=== PATIENT | female | born 1965 | race Asian ===

== ENCOUNTER → 2023-04-12 11:41 | Outpatient (BNVA) | payer BC, SELFPAY | PROVIDERS: PCP Family Medicine; Visit Provider Internal Medicine Rheumatology | DX: Z79.899 Other long term (current) drug therapy (principal); G57.03 Lesion of sciatic nerve, bilateral lower limbs; M35.00 Sjogren syndrome, unspecified; G57.60 Lesion of plantar nerve, unspecified lower limb; M19.90 Unspecified osteoarthritis, unspecified site; Z11.1 Encounter for screening for respiratory tuberculosis; Z11.59 Encounter for screening for other viral diseases; G25.81 Restless legs syndrome | CPT/HCPCS: 36415; 71046; 73130; 73630; 80076; 82306; 82565; 85025; 85651; 86200; 86431; 86480; 86704; 86803; 87340 ==

== ENCOUNTER → 2023-12-26 14:47 | Outpatient (BNVA) | payer BC, SELFPAY | PROVIDERS: PCP Family Medicine; Visit Provider Internal Medicine Rheumatology | DX: M05.79 Rheumatoid arthritis with rheumatoid factor of multiple sites without organ or systems involvement (principal) | CPT/HCPCS: 72100; 72170 ==